=== PATIENT | female | born 1985 | race Caucasian/White ===

== ENCOUNTER 2016-11-21 00:08 | Inpatient (IN) | payer BC ==
[~2016-11-21 00:08] MED LIST: Acetaminophen 325 MG Tab PO PRN; Carboprost Tromethamine 250 MCG/1 ML Amp IM PRN; Lactated Ringers 1,000 ML IV SCH; Lidocaine 1% 30 ML SDV INJECT PRN; Methylergonovine 0.2 MG/1 ML Amp IM PRN; Misoprostol 25 MCG (1/4 of 100 MCG) Tab VAG PRN; Misoprostol 400 MCG (4 X 100 MCG TAB) RECTAL PRN; Nalbuphine 20 MG/1 ML Amp IVPUSH PRN; Ondansetron 4 MG/2 ML SDV IV PRN; Oxytocin/Normal Saline 30 UNIT/500 ML BAG IV SCH; Sodium Chloride 0.9% 10 ML Syringe FLUSH PRN; Zolpidem 5 MG Tab PO PRN; fentaNYL 100 MCG/2 ML SDV IVPUSH PRN
[2016-11-21] MEDS: Lactated Ringers 1,000 ML IV SCH ×2 (00:40→03:04)
--- NOTE | 2016-11-21 01:43 | HP ---
CHIEF COMPLAINT: Induction of labor for gestational diabetes, requiring medications. HISTORY OF PRESENT ILLNESS: A 31-year-old, 3, para 1-0-1-1, currently at 39 and 2/7 weeks' based on 13-week ultrasound, presents to Labor and Delivery just after midnight with plans for induction of labor due to gestational diabetes requiring oral and insulin medication for treatment. She, however, has noted increased force and frequency of contractions throughout the night that she even considered presenting before midnight. She has not had any leakage of fluid, but she had had vaginal bleeding about 1 hour prior to arrival that was heavy enough to put on a pad. She has had good movement. No symptoms of preeclampsia. Contractions she reports are getting stronger and closer together and currently thinks they are about every 5 to 6 minutes. OBSTETRICAL HISTORY: 1. On 01/10/2011, spontaneous miscarriage. 2. On 01/27/2012, delivered 41 weeks 0 days' gestation via spontaneous vaginal delivery. Baby weighed 3595 g. Her name is Ofe. This patient was in labor for approximately 12 hours, pushed for 1 hour and 30 minutes and was given epidural for anesthesia. Baby's scores were 8 and 9. There were no complications of the or delivery. She was induced because of being post dates. Delivery was in [place], with Dr. Epps. LABORATORY DATA: Blood type O positive. Antibody screen negative. Rubella immune. Syphilis serology nonreactive. Hepatitis B negative. HIV negative. Gonorrhea and chlamydia negative. One-hour glucose tolerance test of 181. Three-hour results 95, 201, 142, and 158. TSH normal. Hepatitis C negative. Wet prep negative. Group B strep negative. care has been excellent with first visit at approximately 14 weeks and 5 days' gestation. PAST MEDICAL HISTORY: Depression worse with menses. Has done well on Prozac in the past. FAMILY HISTORY: Diabetes. History of oral herpes. History of abnormal cervical Pap smear with recent negative Pap smears. History of chickenpox as a child. Hyperlipidemia. Menarche at age 10. She has tattoos on her right leg. Ears pierced. No history of transfusions or IV drug use. PAST SURGICAL HISTORY: Laparoscopic cholecystectomy in 2010. FAMILY HISTORY: Mother with diabetes hypertension and high cholesterol. Father with diverticulosis and hypertension. Brother with hypertension. Maternal grandmother with diabetes and emphysema. Maternal grandfather with stomach cancer. Paternal grandmother with Alzheimer's. Paternal grandfather with cancer of uncertain primary. Negative family history for seizures, cystic fibrosis, bleeding, clotting disorders, anesthesia problems, multiple births, defects, Down syndrome, hearing defect, or kidney defects. SOCIAL HISTORY: The patient is single. Her significant other is Hema Rodarte. This will be their second child together. She has 16 years of education and is working as an RN at the [employer]. She has never smoked, has a history of alcohol abuse, but after going through treatment in 2011, she has not drank again. No history of illicit drug use. Hema's family history is overall negative; however, he does have a niece with Angelman syndrome. MEDICATIONS: 1. Insulin 5 units in the morning and 3 units in the evening. 2. Metformin 1000 mg twice daily. 3. Tums as needed for heartburn. 4. vitamin 1 daily. 5. Prozac 20 mg daily. She has not been taking recently. 6. Zyrtec if needed for allergy symptoms. REVIEW OF SYSTEMS: As listed above under the history of present illness. Denies any major changes since her last clinic exam. No chest pain or shortness of breath. No fever or chills. No diarrhea or constipation. No symptoms of urinary tract infection. No symptoms of preeclampsia. No new skin changes. She does have a small blister forming on her lip, but nothing in the vaginal area. PHYSICAL EXAMINATION: General: This is a healthy, well-appearing female who appears her stated age. Vital Signs: Blood pressure 134/84, pulse of 104 at time of AROM, temperature is afebrile, and respiratory rate of 18. HEENT: Overall unremarkable. Heart: Regular without obvious murmur. Lungs: Clear to auscultation bilaterally. Abdomen: Soft. That palpates more firm with contractions. heart tones are tracing at a 120 beats per minute with moderate [id number]-augg variability. Accelerations noted. [place] was tracing. Contractions approximately every 6 minutes. Cervix 80%, 3 cm dilated, -3 station. Bag of water is intact. Small amount of bleeding noted. Extremities: No edema, erythema, or tenderness. LABORATORY DATA: Initial glucose of 77, hemoglobin of 12.2, and platelets of 170. ASSESSMENT: 1. A 39 and 2/7 weeks' intrauterine . The patient presenting in early spontaneous labor. 2. 3, para 1-0-1-1. 3. Gestational diabetes, controlled with insulin and oral medications. 4. Anemia of . 5. Carpal tunnel syndrome. 6. History of abnormal Pap smears. 7. Hyperlipidemia. 8. History of oral herpes. This what appears to be an active lesion today. 9. History of depression, well controlled. 10.History of alcohol abuse in remission. 11.Blood type O positive, rubella immune, group B strep negative. PLAN: The patient admitted to Labor and Delivery. Artificial rupture of membranes was performed without complication and the patient is requesting something for pain. We will start with some Nubain as she is only 3 cm dilated and anticipate her to continue to progress in labor, and we will allow her to have an intrathecal when appropriate. Continue to monitor her sugars during labor, but I do not anticipate very many rechecks as long as she is not eating at this time. Her questions have been answered. [facility] /[id number] FLIP
[2016-11-21] MEDS ORDERED: fentaNYL 100 MCG/2 ML SDV ONE (02:43)
--- NOTE | 2016-11-21 03:24 | PCM.SN ---
- Free Text/Narrative Note: Called to provide labor pain relief via intrathecal for this patient. After consent signed, monitors on and npo status verified, proceeded. With patient in sitting position, sterile prep/drape. Skin wheal at L3-4 with 1% lidocaine, LP X2 at L3-4 with 25g pencan spinal needle. Positive, free flowing CSF, no heme, no paresthesia. Then 6mg mpf HB spinal 0.75% marcaine, 20mcg sufenta, 30mcg fentanyl, 0.4ml preservative free normal saline, plus epi wash via intrathecal. Pt to supine after. Block to around T4, maternal B/P and FHT's stable after, and patient reported pain relief with subsequent contractions.
[2016-11-21] MEDS ORDERED: Oxytocin/Normal Saline 30 UNIT/500 ML BAG IV SCH (03:55)
[2016-11-21] MEDS ORDERED: Benzocaine/Menthol 20%-0.5% Spray 56 GM Canister TOP PRN (06:14)
[2016-11-21] MEDS ORDERED: Acetaminophen 325 MG Tab PO PRN (06:14)
[2016-11-21] MEDS ORDERED: Simethicone 80 MG Tab.Chew PO PRN (06:14)
--- NOTE | 2016-11-21 07:51 | PCM.DEL ---
L & D Note - General Info Date of Service: 11/21/16 Mother's Due Date: 11/26/16 - Delivery Note Labor: Augmented by ARM, Augmented by Oxytocin Delivery Outcome: Livebirth Delivery Mode: Vacuum Extraction Presentation: Right Occiput Anterior (IVON) Nuchal Cord: None Prep: Povidone-Iodine (Betadine Anesthesia Type: Intrathecal Anesthetic: Lidocaine (Xylocaine) 1% Plain Local Anesthetic Volume: 2cc Amniotic Fluid Description: Clear Episiotomy Type: None Laceration: 1st Degree Suture type: Vicryl Suture size: 3-0 Placenta: Intact, Expressed Cord: 3 Vessels Estimated Blood Loss: 300 Resuscitation Needed: No : Stimulated Provider: Diana Deluca Score 1 min: 9 Score 5 min: 9 Post Delivery Events: Other (see below) (Brisk bleeding due to atony, controlled with pitocin and a fundal massage. ) Second Stage Interventions: Reports: Encouragement Given, Pushing Effectively, Pushing Ineffectively, Pushing, McRobert's Position, Pushing, Stirrups/Leg Supports, Other (see below) (Oxygen for heart tones down to the 70s.) Vacuum Extractor Progress Note - Alternative Labor Strategies Considered Alternative Labor Strategies Considered:: Reports: Yes Strategies Considered:: Reports: Contraction Intensity Adequate (PItocin increased to 6. ), Empty Bladder Indications Considered:: Reports: Yes Indications:: Reports: Shortening of 2nd Stage for Maternal Benefit Time Out:: Reports: Yes - Patient Prepared Patient Prepared:: Reports: Yes Informed Consent:: Reports: Yes, Verbal Risks: Reports: Yes Risks Include:: Reports: Laceration, Shoulder Dystocia, Maternal Injury Anesthesia/Analgesia Adequate:: Reports: Yes - Probability of Success High Probability of Success:: Reports: Yes Weight Estimated:: Reports: AGA Patient Diabetic:: Reports: Yes Pelvis Adequate:: Reports: Yes Asynclitic:: Reports: Yes (Not suspected prior to delivery, but diagnosed after. ) - Application Time Maximum Application Time & Number of Pop-Offs Predetermined:: Reports: Yes Maximum Pressure Maintained in Green Zone (cm Hg):: 575 (mmHg) Total Application Time (min): *max=20min: 4 Number of Times Cup Disengaged:: 3 Type of Vacuum Used:: Reports: Cup: Mushroom type Vacuum Extraction: Successful - Exit Strategy Exit strategy available:: Reports: Yes and resuscitation teams readily available:: Reports: Yes (OR crew in house for their normal shift. ) - General Info Date of Service: 11/21/16 Admission Dx/Problem (Free Text): Gestational diabetes, controlled with insulin and metformin. Anemia of . Carpal Tunnel Syndrome. Depression. Oral herpes. O+, Immune, GBS negative. Functional Status: Reports: Pain Controlled - Patient Data Vitals - Most Recent: Last Vital Signs Temp 98.3 F 11/21/16 05:15 Pulse 107 H 11/21/16 06:00 Resp 20 11/21/16 06:00 BP 135/85 11/21/16 06:00 Pulse Ox 92 L 11/21/16 05:00 Weight - Most Recent: 93.44 kg I&O - Last 24 Hours: Intake & Output 11/20/16 11/21/16 11/21/16 22:59 06:59 14:59 Output Total 100 Balance -100 Lab Results Last 24 Hours: Laboratory Results - last 24 hr 11/21/16 11/21/16 11/21/16 Range/Units 00:37 00:40 07:00 WBC 11.2 H (5.0-10.0) 10^3/uL RBC 3.97 L (4.2-5.4) 10^6/uL Hgb 12.2 (12.0-16.0) g/dL Hct 36.4 L (37.0-47.0) % MCV 91.7 (80-100) fL MCH 30.7 (27.0-34.0) pg MCHC 33.5 (33.0-35.0) g/dL Plt Count 170 (150-450) 10^3/uL POC Glucose 77 104 (70-105) mg/dl Med Orders - Current: Current Medications Acetaminophen (Tylenol) 650 mg PO Q6H PRN PRN Reason: mild pain or fever Benzocaine/Menthol (Dermoplast Pain Relief [place]) 0 gm TOP Q4H PRN PRN Reason: Perineal comfort measures Carboprost Tromethamine (Hemabate Ds) 250 mcg IM ASDIRECTED PRN PRN Reason: HEMORRHAGE Docusate Sodium (Colace) 100 mg PO BID PRN PRN Reason: Constipation Fentanyl (Sublimaze) 100 mcg IVPUSH Q1H PRN PRN Reason: Pain (moderate 4-6) Last Admin: 11/21/16 05:46 Dose: 50 mcg Ferrous Sulfate (Ferrous Sulfate) 325 mg PO WITHBREAKFAST JOSE Fluoxetine HCl (Prozac) 20 mg PO DAILY [facility] Lactated Ringer's (Ringers, Lactated) 1,000 mls @ 999 mls/hr IV ASDIRECTED JOSE Last Admin: 11/21/16 02:27 Dose: 999 mls/hr Lactated Ringer's (Ringers, Lactated) 1,000 mls @ 125 mls/hr IV ASDIRECTED JOSE Last Admin: 11/21/16 03:04 Dose: 125 mls/hr Oxytocin/Sodium Chloride (Pitocin In Ns 30 Unit/500 Ml) 30 unit in 500 mls @ 2 mls/hr IV TITRATE JOSE; 2 MUNITS/MIN PRN Reason: Protocol Last Titration: 11/21/16 06:53 Dose: 6 mls/hr Oxytocin/Sodium Chloride (Pitocin In Ns 30 Unit/500 Ml) 30 unit in 500 mls @ 2 mls/hr IV TITRATE JOSE; 2 MUNITS/MIN PRN Reason: Protocol Ibuprofen (Motrin) 800 mg PO Q8H PRN PRN Reason: Mild Pain or Fever Lidocaine HCl (Xylocaine-Mpf 1%) 10 ml INJECT ASDIRECTED PRN PRN Reason: Perineal Repair Methylergonovine Maleate (Methergine) 0.2 mg IM ASDIRECTED PRN PRN Reason: Hemorrhage Misoprostol (Cytotec) 25 mcg VAG Q4H PRN PRN Reason: cervical ripening Misoprostol (Cytotec) 800 mcg RECTAL ASDIRECTED PRN PRN Reason: Hemorrhage Nalbuphine HCl (Nubain) 20 mg IVPUSH ONETIME PRN PRN Reason: Abdominal Pain Last Admin: 11/21/16 00:58 Dose: 20 mg Ondansetron HCl (Zofran) 4 mg IV Q4H PRN PRN Reason: Nausea/Vomiting Last Admin: 11/21/16 02:28 Dose: 4 mg Prenat Multivit/[place]/Iron/Folic Ac ( Plus Iron) 1 each PO DAILY [facility] Simethicone (Simethicone) 80 mg PO Q4H PRN PRN Reason: Gas Sodium Chloride (Saline Flush) 10 ml FLUSH ASDIRECTED PRN PRN Reason: Keep Vein Open Zolpidem Tartrate (Ambien) 5 mg PO BEDTIME PRN PRN Reason: Insomnia Discontinued Medications Acetaminophen (Tylenol) 650 mg PO Q4H PRN PRN Reason: Pain/Fever Acetaminophen (Tylenol) 650 mg PO Q4H PRN PRN Reason: Pain (Mild 1-3) and fever Fentanyl (Sublimaze) Confirm Administered Dose 100 mcg .ROUTE .STK-MED ONE Stop: 11/21/16 02:44 Sufentanil Citrate (Sufenta) Confirm Administered Dose 50 mcg .ROUTE .STK-MED ONE Stop: 11/21/16 02:44 - Problem List Review Problem List Initiated/Reviewed/Updated: Yes - My Orders Last 24 Hours: My Active Orders 11/21/16 00:01 Patient Status [ADT] Routine Heart Tones [RC] PER UNIT ROUTINE Monitoring [RC] PER UNIT ROUTINE Notify Provider Vital Signs OB [RC] ASDIRECTED Peripheral IV Care [RC] . DIRECTED Up ad Melisa [RC] ASDIRECTED Up ad Melisa [RC] PER UNIT ROUTINE Vital Signs [RC] PER UNIT ROUTINE Carboprost Tromethamine [Hemabate DS] 250 mcg IM ASDIRECTED PRN Lactated Ringers [Ringers, Lactated] 1,000 ml IV ASDIRECTED Lactated Ringers [Ringers, Lactated] 1,000 ml IV ASDIRECTED Lidocaine 1% [Xylocaine-MPF 1%] 10 ml INJECT ASDIRECTED PRN Methylergonovine [Methergine] 0.2 mg IM ASDIRECTED PRN Misoprostol [Cytotec] 25 mcg VAG Q4H PRN Misoprostol [Cytotec] 800 mcg RECTAL ASDIRECTED PRN Nalbuphine [Nubain] 20 mg IVPUSH ONETIME PRN Ondansetron [Zofran] 4 mg IV Q4H PRN Oxytocin/Normal Saline [Pitocin in NS 30 UNIT/500 ML] 30 unit in 500 ml IV TITRATE Sodium Chloride 0.9% [Saline Flush] 10 ml FLUSH ASDIRECTED PRN Zolpidem [Ambien] 5 mg PO BEDTIME PRN fentaNYL [Sublimaze] 100 mcg IVPUSH Q1H PRN Peripheral IV Insertion Adult [OM.PC] Urgent Saline Lock Insert [OM.PC] Routine 11/21/16 03:55 Oxytocin/Normal Saline [Pitocin in NS 30 UNIT/500 ML] 30 unit in 500 ml IV TITRATE 11/21/16 06:12 Patient Status Manage Transfer [TRANSFER] Routine 11/21/16 06:14 Notify Provider Vital Signs OB [RC] ASDIRECTED Up ad Melisa [RC] ASDIRECTED Consult to Composition Weatherboard Installer [CONS] Routine Acetaminophen [Tylenol] 650 mg PO Q6H PRN Benzocaine/Menthol [Dermoplast Pain Relief [place]] See Dose Instructions TOP Q4H PRN Docusate Sodium [Colace] 100 mg PO BID PRN Ibuprofen [Motrin] 800 mg PO Q8H PRN Simethicone 80 mg PO Q4H PRN Assess Lochia [WOMSER] Per Unit Routine Assess Uterine Involution [WOMSER] Per Unit Routine Breast Pump [WOMSER] Per Unit Routine Ice Therapy [OM.PC] Per Unit Routine Perineal Care [OM.PC] Per Unit Routine Sitz Bath [OM.PC] Per Unit Routine 11/21/16 06:45 Vital Signs [RC] PFP 11/21/16 08:00 Ferrous Sulfate 325 mg PO WITHBREAKFAST 11/21/16 09:00 FLUoxetine [PROzac] 20 mg PO DAILY Vit with Ca/FA/Iron [ Plus Iron] 1 each PO DAILY 11/21/16 Breakfast Regular Diet [DIET] 11/22/16 08:00 CBC W/O DIFF,HEMOGRAM [HEME] Routine - Assessment Assessment:: VAVD with 1st degree repair for hemostasis. See dictated note. - Plan Plan:: Routine PP care.
[2016-11-21] MEDS: Docusate Sodium 100 MG Cap PO PRN ×2 (09:10→21:51)
[2016-11-21] MEDS: Ferrous Sulfate 325 MG Tab PO SCH (09:10)
[2016-11-21] MEDS: FLUoxetine 10 MG Cap PO SCH (09:10)
[2016-11-21] MEDS: Prenatal Multivitamin with Calcium/Folic Acid/Iron Tab PO SCH (09:10)
[2016-11-21] MEDS: Ibuprofen 800 MG Tab PO PRN ×2 (09:11→16:55)
--- NOTE | 2016-11-21 09:34 | DEL ---
DATE: 11/21/2016 PREPROCEDURE DIAGNOSES: 1. A 39 and 2/7 weeks intrauterine based on 13-week ultrasound. 2. 3, para 1-0-1-1. 3. Gestational diabetes, controlled with oral medications and insulin. 4. Blood type O positive. Rubella immune. Group B strep negative. 5. Anemia of . 6. Carpal tunnel syndrome. 7. History of abnormal Pap smear. 8. Hyperlipidemia. 9. History of oral herpes. 10.Depression. 11.History of alcohol abuse. POSTPROCEDURE DIAGNOSES: 1. A 39 and 2/7 weeks intrauterine based on 13-week ultrasound. 2. 3, para 1-0-1-1. 3. Gestational diabetes, controlled with oral medications and insulin. 4. Blood type O positive. Rubella immune. Group B strep negative. 5. Anemia of . 6. Carpal tunnel syndrome. 7. History of abnormal Pap smear. 8. Hyperlipidemia. 9. History of oral herpes. 10.Depression. 11.History of alcohol abuse. 12.Maternal exhaustion and difficulties with pain control, requesting vacuum- assisted delivery. BRIEF HISTORY: A 31-year-old female, presented to the hospital for planned induction, however had spontaneous onset of labor, and therefore artificial rupture of membranes was performed and things continued to progress after intrathecal. Her labor was augmented with Pitocin, and after 7.5 hours of stage I, she went on to a stage II, and pushed for 19 minutes before successful delivery. Glucose well controlled at 77 at time of admission and she was not eating throughout labor, so blood sugars were not rechecked during that time. LABORATORY DATA: Admission hemoglobin of 12.2, and platelets of 170. PROCEDURE IN DETAIL: With the patient in Kathy position, she delivered a viable female over intact perineum with vacuum assistance. The patient's pushing efforts were fair, however, she was expressing difficulties with focusing on the pushing with the pain that she was having and not making the expected progress with adequate room in the pelvis and requesting assistance. After verbal discussion regarding indications, risks, benefits, and alternatives to vacuum extraction, she agreed to proceed and verbal consent obtained. Appropriate vacuum documentation note has already been written. With the patient at 2+ station, a mushroom type vacuum was applied and pressure kept in the green zone, with pushes in yellow zone between pushes there were 3 pop offs, but ultimately successful vacuum extraction of the without complications. Baby delivered in the IVON position and was dried and stimulated and began to cry. Three-vessel umbilical cord was doubly clamped and cut. Baby taken over to the warmer per mother's request. Placenta then delivered by gentle cord traction and concomitant uterine massage after 7 minutes. Labia and vagina were inspected and there was a first-degree laceration noted which was not hemostatic. This area was infiltrated with lidocaine and [id number] suture placed. However, we started having difficulties with bleeding from the needle insertion sites, so one additional stitch was placed and the bleeding continued more so from the stitches than from the original laceration, so pressure was held until hemostasis was felt to be adequate. ESTIMATED BLOOD LOSS: 400 mL. COMPLICATIONS: None. DISPOSITION: Mother and baby to stay in the room at this time and initiate breast-feeding. [facility] /[id number] FLIP
--- NOTE | 2016-11-21 18:52 | PCM.POSTAN ---
POST ANESTHESIA ASSESSMENT - MENTAL STATUS Mental Status: Alert - VITAL SIGNS Pulse Rate: 98 Resp Rate: 18 Blood Pressure: 145/68 Temperature: 37.0 C - RESPIRATORY Respiratory Status: Respiratory Rate WNL - CARDIOVASCULAR CV Status: Pulse Rate WNL - GASTROINTESTINAL GI Status: No Symptoms - POST OP HYDRATION Hydration Status: Adequate & Stable - OBSERVATIONS Free Text/Narrative:: Pt without c/o. No PONV, no PDPH, no c/o paresthesias, no c/o pain at injection site. No post anesthesia complications noted.
[2016-11-22] MEDS: Ferrous Sulfate 325 MG Tab PO SCH (08:22)
[2016-11-22] MEDS: Prenatal Multivitamin with Calcium/Folic Acid/Iron Tab PO SCH (08:22)
[2016-11-22] MEDS: FLUoxetine 10 MG Cap PO SCH (08:23)
[2016-11-22] MEDS: Docusate Sodium 100 MG Cap PO PRN (08:23)
[2016-11-22] MEDS: Ibuprofen 800 MG Tab PO PRN (08:23)
[2016-11-22 08:40] VITALS: BP 121/81
[2016-11-22] MEDS ORDERED: fentaNYL 100 MCG/2 ML SDV ITHECAL ONE (12:14)
--- NOTE | 2016-11-27 17:07 | DISCH ---
ADMITTING DIAGNOSES: 1. A 39 and 2/7 weeks gestation by 13-week ultrasound number. 2. 3, para 1-0-1-1. 3. Gestational diabetes, controlled with metformin and insulin. 4. Anemia of . 5. Carpal tunnel syndrome of . 6. Depression. 7. History of alcohol abuse. 8. Hyperlipidemia. 9. History of oral herpes. DISCHARGE DIAGNOSES: 1. A 39 and 2/7 weeks gestation by 13-week ultrasound number. 2. 3, para 2-0-1-2. 3. Gestational diabetes, controlled with metformin and insulin. 4. Anemia of . 5. Carpal tunnel syndrome of . 6. Depression. 7. History of alcohol abuse. 8. Hyperlipidemia. 9. History of oral herpes. 10.Status post vacuum-assisted vaginal delivery with first-degree laceration repair. BRIEF HISTORY: The patient was admitted to the hospital in early active labor which was augmented with artificial rupture of membranes and later on with Pitocin. After 7.5 hours of stage I, she pushed for 19 minutes with baby in asynclitic position and due uncoordinated maternal pushing efforts, maternal fatigue, and lack of descent as would be expected, and vacuum-assisted vaginal delivery was performed without incident and placenta delivered easily thereafter. See delivery note for full details. HOSPITAL COURSE: Good. The patient has been ambulating, tolerating regular diet, voiding without difficulties. Pain is well controlled. She is and that seems to be going well. She has had no unusual bleeding and blood sugars have not needed to be checked any further because they were normal throughout labor. DISCHARGE CONDITION: Good. PHYSICAL EXAMINATION: Vital Signs: Temperature is 98.0, Pulse 76, blood pressure 121/81, respiratory rate of 16. Heart: Regular without obvious murmur. Lungs: Clear to auscultation bilaterally. Abdomen: Soft without masses. Fundus is firm and below the umbilicus. Extremities: Trace edema. No erythema or tenderness noted. LABORATORY DATA: Admission hemoglobin was 12.2, discharge is 10.9. Platelets were 170, down to 157 discharge. DISPOSITION: Home with family. MEDICATIONS: 1. [id number] ibuprofen and Tylenol as needed. 2. Iron twice daily. 3. Colace as needed for constipation. 4. Continue vitamins while breast-feeding. FOLLOWUP: The patient will need 6-week examination. She is to come in sooner if any problems or concerns arise, and her questions were answered. [facility] /[id number]
== END 2016-11-22 12:15 | disposition home or self-care (01) | DRG 560 ==
LOC: DL.OBCHECK 00:08 → DL.OB 00:09 → OBSVTOIN 06:55 → DL.OB 06:55
PROVIDERS: ADMIT Family Medicine; ATTEND Family Medicine
PROC: 10907ZC Drainage of Amniotic Fluid, Therapeutic from Products of Conception, Via Natural or Artificial Opening (ICD-10-PCS; principal; 2016-11-21)
PROC: 10D07Z6 Extraction of Products of Conception, Vacuum, Via Natural or Artificial Opening (ICD-10-PCS; 2016-11-21)
PROC: 4A1HXFZ Monitoring of Products of Conception, Cardiac Rhythm, External Approach (ICD-10-PCS; 2016-11-21)
PROC: 0HQ9XZZ Repair Perineum Skin, External Approach (ICD-10-PCS; 2016-11-21)
PROC: 3E033VJ Introduction of Other Hormone into Peripheral Vein, Percutaneous Approach (ICD-10-PCS; 2016-11-21)
PROC: 3E0R3BZ Introduction of Anesthetic Agent into Spinal Canal, Percutaneous Approach (ICD-10-PCS; 2016-11-21)
PROC: 00HU33Z Insertion of Infusion Device into Spinal Canal, Percutaneous Approach (ICD-10-PCS; 2016-11-21)
DX: O24.424 Gestational diabetes mellitus in childbirth, insulin controlled (principal); O24.425 Gestational diabetes mellitus in childbirth, controlled by oral hypoglycemic drugs; O99.344 Other mental disorders complicating childbirth; O70.0 First degree perineal laceration during delivery; Z3A.39 39 weeks gestation of pregnancy; Z37.0 Single live birth; Z79.899 Other long term (current) drug therapy
CPT/HCPCS: 36415; 51701; 82962; 85027; A9270-GY; J2300; J2405; J2590; J3010; J7120